=== PATIENT | male | born 1975 | race Caucasian/White ===

== ENCOUNTER 2018-02-26 05:49 | Emergency (ER) | payer SELFPAY ==
[~2018-02-26] VITALS: Ht 162.6 cm; Wt 60.6 kg
[~2018-02-26 05:49] MED LIST: CYCL10TA7 PO; IBUP800T48 PO
[2018-02-26 06:00] VITALS: Ht 162.6 cm; Wt 60.6 kg
[2018-02-26] MEDS ORDERED: ASPI-903 PO (09:47)
[2018-02-26] MEDS ORDERED: SUCR1TAB56 PO (11:39)
[2018-02-26] MEDS ORDERED: FAMO-96 PO (11:39)
== END 2018-02-26 07:59 | disposition left against medical advice (07) ==
LOC: E/R 05:49
DX: Z53.21 Procedure and treatment not carried out due to patient leaving prior to being seen by health care provider (principal)

== ENCOUNTER 2018-02-26 08:15 | Emergency (ER) | payer MEDICAID ==
[~2018-02-26] VITALS: Ht 162.6 cm; Wt 60.6 kg
[2018-02-26 08:18] VITALS: BP 151/70; PULSE 81; RESP 19; Ht 162.6 cm; Wt 60.6 kg
[2018-02-26] MEDS ORDERED: ONDANSETRON 4 MG INJ IV STA (08:49)
[2018-02-26] MEDS ORDERED: morphine 4 MG/ML VIAL IV STA (08:49)
[2018-02-26] MEDS ORDERED: SOD CHLORIDE 0.9% 1,000 ML IV STA (08:49)
[2018-02-26] MEDS ORDERED: SOD CHLORIDE 0.9% 100 ML ONE (09:34)
[2018-02-26] MEDS ORDERED: IOHEXOL 300MG/ML 150 ML BTL ONE (09:34)
[2018-02-26] MEDS ORDERED: ASPI-903 PO (09:47)
--- NOTE | 2018-02-26 09:56 | NUR ---
Procedure Ordered: CT ABD/PELV WITH IV CON Reason for Exam Today: ABD PAIN Previous Exams: Allergies: PENICILLIN Current Medications Taken: Glucophage ( ) Metformin ( ) Previous reaction to contrast media: Yes ( ) No ( ) : Yes ( ) No (X ) Asthma: Yes ( ) No (X ) Diabetes: Yes ( ) No ( X) Myeloma: Yes ( ) No ( X) Heart Disease: Yes ( ) No ( X) Cardiac Disease: Yes ( ) No (X ) Kidney Disease: Yes ( ) No ( X) Vascular Disease: Yes ( ) No ( X) Patient Teaching done: Yes ( ) No ( ) Screen Printing Cloth Spreader Used: Yes ( ) No ( ) Name of Screen Printing Cloth Spreader: Language Used: As part of the test requested by your doctor, contrast media may be injected into your vein while the x-rays are being taken. Occasionally, reactions from IV contrast may occur. The physician and staff of this hospital are trained to treat these reactions. Select the type of Contrast that will be given to patient: Isovue 300 ( ) Isovue 370 ( ) Visipaque ( ) Cystografin ( ) Gastrographin ( ) Redi-cat ( ) Volumen ( ) Amount of contrast to be given: [id number]: 80CC IV IV ( ) PO ( ) Date given: 02.26.18 Lab Values: BUN: 14 Creatinine: .58 Reason why contrast cannot be given: Location of patient pre-procedure: ED Location of patient post procedure: ED
--- NOTE | 2018-02-26 09:58 | ERD ---
ER Documentation Chief Complaint Chief Complaint AP x 4 days HPI This is a very pleasant 42-year-old male with no previous medical history the presents to the emergency department complaining of abdominal pain that has been intermittent for the past 4 days. Patient indicates the pain began in the periumbilical region. He then stated that the pain began to radiate to both the left and the right lower quadrant. About an hour prior to arrival he stated that he developed bilateral flank pain. He denies any hematuria. He said no fevers or shaking or chills. He states there is no alleviating or exacerbating factors to the pain. He is never had any similar symptoms in the past. He denies any recent travel. He has had no fevers or shaking or chills. He felt nauseous but has not experience any bilious or nonbilious emesis. He said no diarrhea or constipation. He states he took analgesic medication at home which he believes was Motrin given to him by a friend but this did not improve his symptoms. He denies any hemoptysis hematemesis or melanotic stools. ROS All systems reviewed and are negative except as per history of present illness. Medications Home Meds Reported Medications Aspirin* (Aspirin* Chew) 81 Mg Tab.chew, 81 MG PO DAILY, TAB.CHEW 02/26/18 Discontinued Scripts Cyclobenzaprine Hcl* (Cyclobenzaprine Hcl*) 10 Mg Tablet, 10 MG PO Q12 PRN for MUSCLE SPASMS, #20 TAB Prov:PASILABAN,KLAR F 10/27/17 Ibuprofen* (Motrin*) 800 Mg Tab, 800 MG PO Q6H PRN for PAIN AND OR ELEVATED TEMP, #30 TAB Prov:PASILABAN,KLAR F 10/27/17 Allergies Allergies: Coded Allergies: Penicillins (Verified Allergy, Unknown, 10/27/17) PMhx/Soc History of Surgery: Yes (hand surgery) Anesthesia Reaction: No Hx Neurological Disorder: No Hx Respiratory Disorders: No Hx Cardiac Disorders: No Hx Psychiatric Problems: No Hx Miscellaneous Medical Probl: No Hx Alcohol Use: Yes Hx Substance Use: No Hx Tobacco Use: No Physical Exam Vitals Vital Signs Date Temp Pulse Resp B/P (MAP) Pulse Ox O2 O2 Flow FiO2 Time Delivery Rate 02/26/18 98.3 81 19 151/70 100 08:18 (97) Physical Exam Constitutional:Well-developed. Well-nourished. HEENT:Normocephalic. Atraumatic.Pupils were equal round reactive to light. Moist mucous membranes.No tonsillar exudates. Neck: No nuchal rigidity. No lymphadenopathy. No posterior cervical spine tenderness or step-offs. Respiratory: Not using accessory muscles of respiration.Lungs were clear to auscultation bilaterally. No rhonchi. No rales. No wheezing. Cardiovascular: Regular rate regular rhythm.No murmurs. No rubs were appreciated.S1, S2 normal. Distal pulses are palpable 2+ bilaterally. GI: Abdomen was soft. Left lower quadrant tenderness. Lateral CVA tenderness.. Non Distended. No pulsatile abdominal masses or bruits. No rebound. No guarding. Bowel sounds were present and normal. Muscle skeletal: Full range of motion of both the upper and lower extremities bilaterally.Normal muscle tone.No assymetrical calf tenderness or swelling. Skin: No petechia, no purpura. No lesions on the palms or the soles of the feet. No maculopapular rash. NEURO: Patient was alert, awake, orientated x3.No facial droop. Gait observed and normal with no ataxia.Speech had regular rate and rhythm. No focal neurological deficits. Result Diagram: 02/26/18 0909 02/26/18 0909 Results 24 hrs Laboratory Tests Test 02/26/18 09:09 White Blood Count 10.1 10^3/ul Red Blood Count 4.75 10^6/ul Hemoglobin 14.8 g/dl Hematocrit 45.3 % Mean Corpuscular Volume 95.4 fl Mean Corpuscular Hemoglobin 31.2 pg Mean Corpuscular Hemoglobin Concent 32.7 g/dl Red Cell Distribution Width 12.3 % Platelet Count 271 10^3/UL Mean Platelet Volume 9.6 fl Immature Granulocytes % 0.200 % Neutrophils % 70.1 % Lymphocytes % 20.2 % Monocytes % 7.8 % Eosinophils % 1.1 % Basophils % 0.6 % Nucleated Red Blood Cells % 0.0 /100WBC Immature Granulocytes # 0.020 10^3/ul Neutrophils # 7.1 10^3/ul Lymphocytes # 2.0 10^3/ul Monocytes # 0.8 10^3/ul Eosinophils # 0.1 10^3/ul Basophils # 0.1 10^3/ul Nucleated Red Blood Cells # 0.0 10^3/ul Prothrombin Time 12.8 Sec Prothrombin Time Ratio 1.0 INR International Normalized Ratio 0.95 Activated Partial Thromboplast Time 31.5 Sec Urine Color YELLOW Urine Clarity CLEAR Urine pH 8.0 Urine Specific [place] 1.011 Urine Ketones NEGATIVE mg/dL Urine Nitrite NEGATIVE mg/dL Urine Bilirubin NEGATIVE mg/dL Urine Urobilinogen NEGATIVE mg/dL Urine Leukocyte Esterase NEGATIVE Akin/ul Urine Hemoglobin NEGATIVE mg/dL Urine Glucose NEGATIVE mg/dL Urine Total Protein NEGATIVE mg/dl Sodium Level 143 mmol/L Potassium Level 4.0 mmol/L Chloride Level 102 mmol/L Carbon Dioxide Level 33 mmol/L Anion Gap 8 Blood Urea Nitrogen 14 mg/dl Creatinine 0.58 mg/dl Est Glomerular Filtrat Rate mL/min > 60 mL/min Glucose Level 96 mg/dl Calcium Level 9.4 mg/dl Total Bilirubin 0.3 mg/dl Direct Bilirubin 0.00 mg/dl Indirect Bilirubin 0.3 mg/dl Aspartate Amino Transf (AST/SGOT) 29 IU/L Alanine Aminotransferase (ALT/SGPT) 47 IU/L Alkaline Phosphatase 97 IU/L Troponin I < 0.012 ng/ml Total Protein 7.5 g/dl Albumin 4.4 g/dl Globulin 3.10 g/dl Albumin/Globulin Ratio 1.41 Amylase Level 66 U/L Lipase 49 U/L Current Medications Medications Dose Sig/Deshawn Start Time Status Last (Trade) Ordered Route PRN Stop Time Admin Dose Reason Admin Sodium 1,000 ml @ Q1H STAT 02/26/18 DC 02/26/18 Chloride 1,000 mls/hr IV 08:49 02/26/18 09:20 09:48 Morphine 4 mg ONCE STAT 02/26/18 DC 02/26/18 Sulfate IV 08:49 02/26/18 09:20 (morphine) 08:52 Ondansetron 4 mg ONCE STAT 02/26/18 DC 02/26/18 HCl (Zofran IV 08:49 02/26/18 09:20 Inj) 08:52 IV Flush 10 ml STK-MED 02/26/18 DC 02/26/18 (NS 10 ml) ONCE .ROUTE 09:34 02/26/18 10:06 09:35 Sodium 100 ml @ ud STK-MED 02/26/18 DC 02/26/18 Chloride ONCE .ROUTE 09:34 02/26/18 10:06 09:35 Iohexol 150 ml STK-MED 02/26/18 DC 02/26/18 (Omnipaque ONCE .ROUTE 09:34 02/26/18 10:06 300mg/ ml) 09:35 40 ml ONCE ONCE 02/26/18 DC 02/26/18 Miscellaneous PO 11:00 02/26/18 11:29 Medication 11:01 (Gi Cocktail (2)) Famotidine 20 mg ONCE ONCE 02/26/18 DC 02/26/18 (Pepcid Iv) IV 11:00 02/26/18 11:29 11:01 Procedures/MDM This patient presented to the emergency department with abdominal pain and was seen and evaluated by myself. My differential diagnosis included but was not limited to abdominal aortic aneurysm, appendicitis, pancreatitis, perforated peptic ulcer, perforated viscus, Boerhaaves syndrome or visceral pain such as diverticulitis, DKA, esophagitis, hepatitis or bowel obstruction. The patient was placed on a cook fast food, continuous pulse oximetry, and IV access was established by nursing staff. The patient was given intravenous morphine and Zofran for analgesia control. I obtained a 12-lead EKG tracing to rule out for atypical microinfarction. 12 Lead EKG tracing ordered and reviewed by myself showed: Normal sinus rhythm of 73 bpm and no arrhythmia. MN interval normal. QRS duration normal. No ST segment elevation No ST segment depression. No changes consistent with acute ischemia. Given the patient's pain and symptoms I do feel is necessary to obtain a CT scan of his abdomen. This was reviewed by myself and the radiologist and indicated the followin. Mild diffuse gastric wall thickening likely due to lack of optimal distension. Gastritis cannot be excluded though felt to be less likely. Recommend clinical correlation. 2. No calcified urinary calculi or obstructive uropathy. 3. No evidence of diverticulitis or appendicitis. 4. Mild hepatomegaly with hepatic fatty infiltration. 5. Mild bibasilar ground-glass opacities may all be due to subsegmental atel ectasis. Pneumonitis should be considered. The patient received a GI cocktail and IV Pepcid. I indicated the patient that I did feel his symptoms more likely were resolved of possible peptic ulcer disease. I indicated to the patient that he would benefit from an outpatient upper endoscopy and colonoscopy. The patient did not have any risk factors or physical exam findings to suggest a more acute life-threatening etiology such as mesenteric ischemia. Patient was discharged home with sucralfate. The patient was discharged home in fair condition. They were instructed to return to the emergency department at any time if there was any worsening of their condition. The patient stated they would follow up with their PCP in the next 24-48 hours to initiate a suitable medication regimen under the care of their PCP as well as to allow their PCP to monitor any drug reactions. The patient was discharged home with prescriptions after they gave informed consent to the new medication. They were also fully informed by myself on the adverse effects and adverse drug interactions in order to provide adequate safeguards to prevent possible adverse reactions to medications. Departure Diagnosis: Primary Impression: Abdominal pain Abdominal location: generalized Qualified Codes: R10.84 - Generalized abdominal pain Condition: Fair HEBERT MCLAUGHLIN MD Feb 26, 2018 09:58
--- NOTE | 2018-02-26 10:07 | NUR ---
Procedure Ordered: CT ABD/PELV WITH IV CONTRAST Reason for Exam Today: ABD PAIN Previous Exams: Allergies: PENICILLIN Current Medications Taken: Glucophage ( ) Metformin ( ) Previous reaction to contrast media: Yes ( ) No ( ) : Yes ( ) No ( X) Asthma: Yes ( ) No ( X) Diabetes: Yes ( ) No (X ) Myeloma: Yes ( ) No ( X) Heart Disease: Yes ( ) No (X ) Cardiac Disease: Yes ( ) No ( X) Kidney Disease: Yes ( ) No ( X) Vascular Disease: Yes ( ) No ( X) Patient Teaching done: Yes ( ) No ( ) Education Professional Used: Yes ( ) No ( ) Name of Education Professional: Language Used: As part of the test requested by your doctor, contrast media may be injected into your vein while the x-rays are being taken. Occasionally, reactions from IV contrast may occur. The physician and staff of this hospital are trained to treat these reactions. Select the type of Contrast that will be given to patient: Isovue 300 ( ) Isovue 370 ( ) Visipaque ( ) Cystografin ( ) Gastrographin ( ) Redi-cat ( ) Volumen ( ) Amount of contrast to be given: [id number]: 80CC IV IV ( ) PO ( ) Date given: 02.26.18 Lab Values: BUN: 14 Creatinine: 0.58 Reason why contrast cannot be given: Location of patient pre-procedure: ED Location of patient post procedure: ED
[2018-02-26] MEDS ORDERED: FAMOTIDINE 20 MG INJ IV ONE (11:00)
[2018-02-26] MEDS ORDERED: LIDOCAINE/MYLANTA 40 ML BTL PO ONE (11:00)
[2018-02-26] MEDS ORDERED: SUCR1TAB56 PO (11:39)
[2018-02-26] MEDS ORDERED: FAMO-96 PO (11:39)
== END 2018-02-26 12:11 | disposition home or self-care (01) ==
LOC: E/R 08:15
DX: R10.84 Generalized abdominal pain (principal)
CPT/HCPCS: 74177; 80053; 81003; 82150; 83690; 84484; 85025; 85610; 85730; 93005; 96374; 96375; J2270; J2405; J7030; Q9967; Z7502; Z7610